=== PATIENT | male | born 1965 | race Hispanic/Latino ===

== ENCOUNTER 2018-06-08 14:18 | Inpatient (IN) | payer MEDICAID ==
--- NOTE | 2018-06-08 16:02 | C.PDOC ---
History Of Present Illness 52 y/o male presents to the ER complaining of depression and suicidal ideation. Patient states that he did not attempt suicide as of now. Patient reports that he does not have any plans as of yet and he is trying to figure out a way he can harm himself. He admits to drug use. Denies having homicidal ideation and active physical complaints. Time Seen by Provider: 06/08/18 15:13 Chief Complaint (Nursing): Psychiatric Evaluation History Per: Patient History/Exam Limitations: no limitations Onset/Duration Of Symptoms: Days Current Symptoms Are (Timing): Still Present Severity: Moderate Past Medical History Reviewed: Historical Data, Nursing Documentation, Vital Signs Vital Signs: Last Vital Signs Temp 98.4 F 06/08/18 18:15 Pulse 61 06/08/18 18:15 Resp 18 06/08/18 18:15 BP 119/72 06/08/18 18:15 Pulse Ox 97 06/08/18 18:54 - Medical History PMH: Anxiety, Depression, Post Traumatic Stress Disorder Other Surgeries: Hx of surgeries Family History: States: No Known Family Hx - Social History Hx Alcohol Use: Yes Hx Substance Use: Yes Review Of Systems Except As Marked, All Systems Reviewed And Found Negative. Constitutional: Negative for: Fever, Chills Psych: Positive for: Suicidal ideation Physical Exam - Physical Exam Appears: No Acute Distress Skin: Normal Color, Warm, Dry Head: Atraumatic, Normacephalic Eye(s): bilateral: Normal Inspection Nose: Normal Oral Mucosa: Moist Neck: Supple Chest: Symmetrical Cardiovascular: Rhythm Regular Respiratory: Normal Breath Sounds, No Rales, No Rhonchi, No Wheezing Gastrointestinal/Abdominal: Normal Exam, Soft, No Tenderness, No Guarding, No Rebound Neurological/Psych: Oriented x3, Normal Speech ED Course And Treatment - Laboratory Results Result Diagrams: 06/08/18 17:09 06/08/18 17:09 O2 Sat by Pulse Oximetry: 97 (RA) Pulse Ox Interpretation: Normal Medical Decision Making Medical Decision Making: Assessment: Suicidal Ideation, Substance Abuse Plan: --Labs --UA --1:1 Observation Updates: Patient has been cleared by CRISIS. case s/o to Dr. Little pending crisis evaluation Disposition - Disposition Disposition Time: 19:00 Condition: FAIR Forms: [employer] (Sing[place]an) - Clinical Impression Clinical Impression: Threatening suicide - Scribe Statement The provider has reviewed the documentation as recorded by the Scribe Oleg Bonilla Provider Attestation: All medical record entries made by the Scribe were at my direction and personally dictated by me. I have reviewed the chart and agree that the record accurately reflects my personal performance of the history, physical exam, medical decision making, and the department course for this patient. I have also personally directed, reviewed, and agree with the discharge instructions and disposition. Physician Patient Turnover Patient Signed Over To: Barry Little Handoff Comments: pending crisis evaluation
[2018-06-08 17:13] LABS: HEMOGLOBIN 13.5 g/dL (12.0-18.0); LYMPH # 1.2 K/uL (1.0-4.3); MONO # 0.3 K/uL (0.0-0.8); RBC 4.43 Mil/uL (4.40-5.90)
[2018-06-08 17:20] LABS: BASO % 0.4 % (0.0-2.0); LYMPH % 16.3 % (20.0-40.0); MEAN CELL VOLUME 88.1 fL (80.0-94.0); MEAN CORPUSCULAR HEMOGLOBIN 30.5 pg (27.0-31.0); MEAN CORPUSCULAR HGB CONC 34.6 g/dL (33.0-37.0); MEAN PLATELET VOLUME 7.5 fL (7.2-11.7); MONO % 3.7 % (0.0-10.0); NEUT # 6.1 K/uL (1.8-7.0); NEUT % 79.6 % (50.0-75.0); NRBC % 0.1 % (0.0-2.0); RED CELL DISTRIBUTION WIDTH 13.1 % (11.5-14.5); WHITE BLOOD COUNT 7.7 K/uL (4.8-10.8)
[2018-06-08 17:22] LABS: SQUAMOUS EPITHIAL < 1 /hpf (0-5); URINE BILIRUBIN NEGATIVE (NEGATIVE); URINE BLOOD NEGATIVE (NEGATIVE); URINE CLARITY Hazy (Clear); URINE COLOR Amber (YELLOW); URINE GLUCOSE (UA) NORMAL (Normal); URINE LEUKOCYTE ESTERASE NEG Leu/uL (Negative); URINE PROTEIN 2+ mg/dL (NEGATIVE)
[2018-06-08 17:40] LABS: ALB/GLOB RATIO 1.1 (1.0-2.1); ALBUMIN 4.9 g/dL (3.5-5.0); ALT/SGPT 28 U/L (21-72); AST/SGOT 24 U/L (17-59); BLOOD UREA NITROGEN 15 mg/dL (9-20); CALCIUM 9.7 mg/dl (8.6-10.4); GFR AFRICAN-AMERICAN > 60; GFR NON-AFRICAN AMERICAN > 60
[2018-06-08] MEDS ORDERED: Potassium Chloride 20 mEq ER Tab PO STA (17:43)
[2018-06-08 18:10] LABS: BARBITURATES, UR NEGATIVE (NEGATIVE); BENZODIAZEPINES, UR NEGATIVE (NEGATIVE); PHENCYCLIDINE, UR NEGATIVE (NEGATIVE)
[2018-06-08] MEDS ORDERED: Potassium Chloride 20 mEq ER Tab PO ONE (18:10)
[2018-06-08 18:35] LABS: OPIATES, UR POSITIVE (NEGATIVE)
[2018-06-08 19:08] VITALS: O2SAT 98
--- NOTE | 2018-06-08 20:40 | PCM.BM ---
Treatment Plan Problems - Problems identified on initial assessmt depression Date Initiated: 06/08/18 Time Initiated: 20:39 Assessment reference: NA substance abuse Date Initiated: 06/08/18 Time Initiated: 20:39 Assessment reference: NA Treatment assets and liabiliti Patient Assests: cooperative, motivated, ADL independent, negotiates basic needs Patient Liabilities: live alone, financial problems, poor support system, substance abuse
--- NOTE | 2018-06-08 20:42 | PCM.BM ---
<Corrie Yin - Last Filed: 06/08/18 20:40> Treatment Plan Problems - Problems identified on initial assessmt depression Date Initiated: 06/08/18 Time Initiated: 20:39 Assessment reference: NA substance abuse Date Initiated: 06/08/18 Time Initiated: 20:39 Assessment reference: NA Status: Active Treatment assets and liabiliti Patient Assests: cooperative, motivated, ADL independent, negotiates basic needs Patient Liabilities: live alone, financial problems, poor support system, substance abuse - Milieu Protocol Maintain good personal hygiene: daily Encourage regular showers, daily Remind patient to perform daily oral care, daily Assist patient to perform ADL's Conduct patient checks and document Observation sheet: 1:1 Maintain personal safety: every shift Educate patient to report safety concerns to staff, every shift Monitor environment for contraband/sharps Medication safety: Monitor for expected outcome, potential side effects: every shift, Assess barriers to learning: every shift, Assess readiness for medication education: every shift <Jazmin Paris - Last Filed: 06/09/18 13:42> - Diagnosis (1) Depression Status: Acute Interventions: 06/09/18 13:42 * Assess/adjust medications daily and /or as needed * See patient on an individual basis 7x/week to assess symptoms of depression * Monitor for side effects & effectiveness of medications * (2) Opioid use disorder, severe, dependence Status: Acute Interventions: 06/09/18 13:42 * Assess 7x/week regarding severity of withdrawal * Educate regarding risks, benefits, side effects and alternatives of medications * Use Motivational Interviewing for abstinence * Use CBT for relapse prevention * Medication management for withdrawal symptoms * Encourage medication assisted treatment * <Soni Hewitt - Last Filed: 06/09/18 17:46> Family Contact Family involvement: Patient does not wish Family/SO involvement Family contact: Patient declines to allow family contact at present - Goals for Treatment Patient goals for treatment: "I want to go to an outpatient program." Discharge/Continuing Care - Education Needs Education Needs: Patient Medication, Patient Diagnosis/Disease Process, Patient Coping Skills, Patient Placement options, Patient Community resources - Discharge Discharge Criteria: Free of Suicidal thoughts, Normal sleep pattern, Ability to care for self, No longer exhibiting s/s of withdrawal, Reduction of target symptoms Discharge to:: Intermediate, Other - Treatment Team Participation Discussed with Family/SO: No Was Patient/Family/SO present at Treatment Team Meeting: Yes
--- NOTE | 2018-06-09 11:19 | PCM.PSYCH ---
Initial Psychiatric Evaluation - Initial Psychiatric Evaluation Type of Admission: Voluntary Legal Status: Capacity Chief Complaint (in patient's own words): "I just want to " History of Present Illness and Precipitating Events: Patient is a 52 year old male with a history of chronic opiate and alcohol abuse that was admitted for suicidal ideation. The patient states that he came to the ER yesterday because he was having thoughts of killing himself. He states that he did not have a plan. The patient states that he has been homeless since 1995 and has no family. He states that he has had depression since he was a teenager. He has been hospitalized three times in a psych unit in [facility]. The patient has attempted to commit suicide four times in the past. He states that he is only on medications when he has been in the hospital. Most recently he has been without medication for two years. He was on Zoloft, Neurontin, and Klonopin but is not currently taking his medications. The patient admits to heroin use 10-30 bags a day via IV and cocaine 10 capsules a day via IV. He also admits to occasional marijuana use but did not quantify the amount. He states that he drinks up to 20 24 ounce beer cans a day. He currently expresses depressed mood and feelings of hopelessness and helplessness. He is reporting withdrawal symptoms including muscle cramps., nausea, joint pains and muscle cramps. Past Medical History: Hepatitis C Past surgical history: hip and elbow surgery Social history: currently does no have a job, is homeless, smokes 1 pack of cigarettes a day Current Medications: Active Medications Generic Name Dose Route Start Last Admin Trade Name Freq PRN Reason Stop Dose Admin Al Hydrox/Mg Hydrox/Simethicone 30 ml 06/09/18 08:52 Maalox 30 Ml PO TID PRN Indigestion / Heartburn Clonidine HCl 0.1 mg 06/09/18 08:52 Catapres PO Q8 PRN COWS Score More or Equal to 5 Hydroxyzine HCl 50 mg 06/09/18 08:52 Atarax PO Q6H PRN Anxiety Ibuprofen 600 mg 06/09/18 08:52 Motrin Tab PO Q6H PRN Pain, moderate (4-7) Loperamide HCl 2 mg 06/09/18 08:52 Imodium PO Q8 PRN Diarrhea Methadone HCl 15 mg 06/09/18 10:00 06/09/18 10:19 Methadone PO 06/13/18 09:59 15 mg Q24H ALEAH Administration Taper Ondansetron HCl 4 mg 06/09/18 08:52 Zofran Tab PO Q8 PRN Nausea/Vomiting Trazodone HCl 100 mg 06/09/18 08:52 Desyrel PO HS PRN Insomnia Past Psychiatric History - Past Psychiatric History Previous Treatment History: Inpatient At [facility] hospital: [facility] Pertinent Medical Hx (Current Medical&Sleep Prob, Allergies): Allergies Allergy/AdvReac Type Severity Reaction Status Date / Time No Known Allergies Allergy Verified 06/08/18 15:01 No Known Home Med 06/08/18 Review of Systems - Review of Systems All systems: reviewed and no additional remarkable complaints except - Musculoskeletal Musculoskeletal: Muscle Cramps - Psychiatric Psychiatric: Anxiety, Depression, Irritability, Suicidal Ideation Mental Status Examination - Personal Presentation Personal Presentation: Looks stated age - Affect Affect: Constricted, Depressed - Motor Activity Motor Activity: Calm - Reliability in Providing Information Reliability in Providing Information: Fair - Speech Speech: Organized - Mood Mood: Depressed, Anxious - Formal Thought Process Formal Thought Process: No Impairment (+) - Obsessions/Compulsions Obsessions: No Compulsions: No - Cognitive Functions Orientation: Person, Place, Situation, Time Sensorium: Alert Abstract Thinking: [place] Estimate of Intelligence: Below average Judgement: Imparied, as evidence by: Poor judgement, Imparied, as evidence by: Lack of insight into illness - Risk Risk: Suicidal, Withdrawal, Diminished functioning - Limitations Limitations: Living alone DSM 5 DX - DSM 5 DSM 5 Diagnosis: Major Depressive Disorder recurrent severe without psychotic features Opiate use disorder severe Opiate withdrawal Alcohol use disorder severe Alcohol withdrawal - Recommended/Plan of Treatment Treatment Recommendations and Plan of Treatment: Major Depressive Disorder recurrent severe without psychotic features Opiate use disorder severe Opiate withdrawal Alcohol use disorder severe Alcohol withdrawal -CBT -Psychotherapy -Supportive therapy, group therapy, individual therapy -Atarax 25 mg PO Q6 prn -Neurontin 300 mg PO TID -Methadone taper -Zoloft 50 mg -Trazodone 100 mg -Supportive therapy and education -CBT for relapse prevention -Nicotine patch if needed -Monitor for withdrawal symptoms
[2018-06-09] MEDS: Aluminum Hydroxide/Magnesium Hydroxide Susp (30 mL) PO PRN (18:10)
[2018-06-10] MEDS: Aluminum Hydroxide/Magnesium Hydroxide Susp (30 mL) PO PRN (08:16)
--- NOTE | 2018-06-10 15:59 | PCM.PYCHPN ---
Psychiatric Progress Note - Psychiatric Progress Note Patient seen today, length of contact: 16 min Patient Chief Complaint: "I am feeling depressed" Problems Identified/Issues Discussed: Patient seen and evaluated, chart reviewed and discussed with the nurse. Patient reports depressed mood and feelings of hopelessness and helplessness. He remained depressed, isolated and withdrawn. He still reports withdrawal symptoms including anxiety, cramps, joins pains, headaches and sweating. However he remained calm and cooperative. He is taking medication and denies any side effects. Symptoms are improving but he needs more time for stabilization. Supportive therapy and psychoeducation were given. Medication Change: Yes Medical Record Reviewed: Yes Mental Status Examination - Cognitive Function Orientation: Person, Place, Situation, Time Memory: Intact Attention: WNL Concentration: Poor Association: WNL Fund of Knowledge: Poor - Mood Mood: Depressed, Anxious - Affect Affect: Constricted, Depressed - Speech Speech: Soft - Formal Thought Process Formal Thought Process: No Impairment (+) - Suicidal Ideation Suicidal Ideation: No - Homicidal Ideation Homicidal Ideation: No Goal/Treatment Plan - Goal/Treatment Plan Need for Continued Stay: Severe depression anxiety, Severe functional impairment Progress Toward Problem(s) and Goals/Treatment Plan: Major Depressive Disorder recurrent severe without psychotic features Opiate use disorder severe Opiate withdrawal Alcohol use disorder severe Alcohol withdrawal -CBT -Psychotherapy -Supportive therapy, group therapy, individual therapy -Atarax 25 mg PO Q6 prn -Neurontin 300 mg PO TID -Methadone taper -Zoloft 50 mg -Trazodone 100 mg -Supportive therapy and education -CBT for relapse prevention -Nicotine patch if needed -Monitor for withdrawal symptoms
[2018-06-10 21:22] LABS: ALB/GLOB RATIO 1.1 (1.0-2.1); ALT/SGPT 25 U/L (21-72); AST/SGOT 32 U/L (17-59); BLOOD UREA NITROGEN 19 mg/dL (9-20); CALCIUM 9.2 mg/dl (8.6-10.4); GFR AFRICAN-AMERICAN > 60; GFR NON-AFRICAN AMERICAN > 60
--- NOTE | 2018-06-10 22:26 | CP.PCM.CON ---
History of Present Illness - History of Present Illness History of Present Illness: CC: Left hand pain HPI: Patient is a 52 year old male with past medical history of Hepatitis C, IV drug use, Alcohol abuse, Depression, Anxiety and Bipolar, who was admitted to inpatient psychiatry for suicidal ideation and depression. Medicine consultation was placed for possible left hand abscess. Patient states that he noted left hand pain between his 3rd and 4th metacarpal 2-3 days before he was admitted. Pain was noted after drug use with re-used needle; patient states that he missed his vein that day. Patient noted mild swelling and redness to the site earlier today and more tenderness on palpation. Patient denies any radiation of pain, fever, chest pain, palpitations, drainage from his left hand , numbness/tingling and decreased or loss of range of motion but admits to chills. PMD: None PMHx: Hepatitis C, IV drug use, Alcohol abuse, Depression, Anxiety and Bipolar PSHx: Left elbow surgery and right hip fracture repair FHx: Denies/Unknown Medications: None Allergies: NKDA Social Hx: Between homes in the [facility]. Admits to 40 years of 1PPD, 1-20 (20-24 ounces) can of beers daily and daily use of heroine and cocaine for the past 25 years (10-30 bags IV) Review of Systems - Constitutional Constitutional: Chills. absent: Fever, Headache, Malaise - Cardiovascular Cardiovascular: Chest Pain at Rest. absent: Chest Pain, Diaphoresis, Dyspnea, Dyspnea on Exertion, Palpitations, Radiating Pain - Respiratory Respiratory: absent: Cough, Dyspnea - Gastrointestinal Gastrointestinal: absent: Abdominal Pain, Nausea, Vomiting - Musculoskeletal Musculoskeletal: absent: Limited Range of Motion, Numbness, Tingling - Integumentary Integumentary: Erythema. absent: Pruritus, Rash Additional comments: Left hand erythema - Neurological Neurological: absent: Numbness, Headaches, Tingling - Psychiatric Psychiatric: Anxiety, Depression - Endocrine Endocrine: absent: Palpitations Past Patient History - Past Social History Smoking Status: Heavy Smoker > 10 Cigarettes Daily - CARDIAC Hx Cardiac Disorders: No Hx Hypertension: No - PULMONARY Hx Tuberculosis: No - NEUROLOGICAL HX Cerebrovascular Accident: No Hx Seizures: No - RENAL Hx Chronic Kidney Disease: No Hx Dialysis: No Hx Neurogenic Bladder: No Hx Renal (Kidney) Cancer: No - HEMATOLOGICAL/ONCOLOGICAL Hx Cancer: No Hx Human Immunodeficiency Virus (HIV): No - MUSCULOSKELETAL/RHEUMATOLOGICAL Hx Musculoskeletal Disorders: Yes Hx Degenerative Joint Disease: Yes - GENITOURINARY/GYNECOLOGICAL Hx Sexually Transmitted Disorders: No - PSYCHIATRIC Hx Substance Use: Yes - SURGICAL HISTORY Hx Surgeries: Yes Hx Orthopedic Surgery: Yes - ANESTHESIA Hx Anesthesia: No Meds Allergies/Adverse Reactions: Allergies Allergy/AdvReac Type Severity Reaction Status Date / Time No Known Allergies Allergy Verified 06/08/18 15:01 - Medications Medications: Current Medications Al Hydrox/Mg Hydrox/Simethicone (Maalox 30 Ml) 30 ml PO TID PRN PRN Reason: Indigestion / Heartburn Last Admin: 06/10/18 08:16 Dose: 30 ml Chlordiazepoxide (Librium) 25 mg PO Q8 PRN PRN Reason: Symptoms of alcohol withdrawl Clindamycin HCl (Cleocin) 450 mg PO Q6H [facility] PRN Reason: Protocol Clonidine HCl (Catapres) 0.1 mg PO Q8 PRN PRN Reason: COWS Score More or Equal to 5 Folic Acid (Folic Acid) 1 mg PO DAILY [facility] Gabapentin (Neurontin) 300 mg PO TID [facility] Last Admin: 06/10/18 18:05 Dose: 300 mg Hydroxyzine HCl (Atarax) 50 mg PO Q6H PRN PRN Reason: Anxiety Last Admin: 06/10/18 18:09 Dose: 50 mg Ibuprofen (Motrin Tab) 600 mg PO Q6H PRN PRN Reason: Pain, moderate (4-7) Loperamide HCl (Imodium) 2 mg PO Q8 PRN PRN Reason: Diarrhea Methadone HCl (Methadone) 10 mg PO Q24H [facility] PRN Reason: Taper Stop: 06/13/18 09:59 Last Admin: 06/10/18 09:48 Dose: 10 mg Multivitamins (Hexavitamin) 1 tab PO DAILY [facility] Ondansetron HCl (Zofran Tab) 4 mg PO Q8 PRN PRN Reason: Nausea/Vomiting Saccharomyces Boulardii (Florastor) 250 mg PO BID [facility] Sertraline HCl (Zoloft) 50 mg PO DAILY [facility] Last Admin: 06/10/18 09:49 Dose: 50 mg Thiamine HCl (Vitamin B1 Tab) 100 mg PO DAILY [facility] Trazodone HCl (Desyrel) 100 mg PO HS PRN PRN Reason: Insomnia Physical Exam - Constitutional Appears: No Acute Distress Additional comments: Very Thin - Head Exam Head Exam: ATRAUMATIC, NORMAL INSPECTION - Eye Exam Eye Exam: EOMI, Normal appearance - ENT Exam ENT Exam: Mucous Membranes Dry - Respiratory Exam Respiratory Exam: Clear to Auscultation Bilateral, NORMAL BREATHING PATTERN. absent: Decreased Breath Sounds, Rhonchi, Wheezes, Respiratory Distress - Cardiovascular Exam Cardiovascular Exam: Bradycardia, REGULAR RHYTHM, +S1, +S2. absent: Clicks, Diastolic murmur, Systolic Murmur - GI/Abdominal Exam GI & Abdominal Exam: Normal Bowel Sounds, Soft. absent: Distended, Firm, Guarding, Tenderness - Extremities Exam Extremities exam: Positive for: normal inspection Additional comments: Left hand between 3rd and 4th metacarpal and lateral ulnar side tenderness and mild erythema, no flatulence Normal range of motion and strength No tingling or numbness Some track marking B//L upper extremities - Neurological Exam Neurological exam: Alert, Oriented x3 - Psychiatric Exam Psychiatric exam: Normal Affect - Skin Skin Exam: Normal Color Results - Vital Signs Recent Vital Signs: Last Vital Signs Temp 98.3 F 06/10/18 06:55 Pulse 48 L 06/10/18 16:00 Resp 18 06/10/18 06:55 BP 129/92 H 06/10/18 16:00 Pulse Ox 98 06/08/18 19:08 - Labs Result Diagrams: 06/08/18 17:09 06/10/18 19:56 Labs: Laboratory Results - last 24 hr 06/10/18 19:56 Sodium 143 Potassium 4.1 Chloride 106 Carbon Dioxide 23 Anion Gap 18 BUN 19 Creatinine 0.9 Est GFR ( Amer) > 60 Est GFR (Non-Af Amer) > 60 Random Glucose 82 Calcium 9.2 Total Bilirubin 0.5 AST 32 ALT 25 Alkaline Phosphatase 80 Total Protein 7.7 Albumin 4.0 Globulin 3.7 Albumin/Globulin Ratio 1.1 Assessment & Plan (1) Left hand pain Assessment and Plan: Secondary to IV drug use Afebrile Medications: Clindamycin 450mg PO QID (Started 06/10/18) Florastor 250mg PO BID Motrin 600mg PO Q6H PRN for pain control If symptoms worsens or becomes flatulence, appropriate imaging will be considered to r/o abscess Status: Acute (2) Opioid use disorder, severe, dependence Assessment and Plan: Psychiatry, Dr. Nice on board Medications: Methadone 10mg PO QD Clonidine 0.1mg PO Q8H PRN Imodium 2mg PO Q8H PRN Maalox 30ml PO TID PRN Zofran 4mg PO Q8H PRN Trazadone 100mg PO HS Gabapentin 300mg PO TID Status: Acute (3) Alcohol abuse Assessment and Plan: Psychiatry, Dr. Nice on board Medications: * Librium 25mg PO Q8H PRN * Folic acid 1 tab PO daily * Thiamine 100mg PO daily * Multivitamins 1 tab PO daily Status: Acute (4) Depression Assessment and Plan: Psychiatry, Dr. Nice on board Medications: * Zoloft 50mg PO daily Status: Acute (5) Threatening suicide Assessment and Plan: Psychiatry, Dr. Nice on board * Management as per psychiatry Status: Acute (6) Prophylactic measure Assessment and Plan: DVT: Ambulating GI: Not indicated All plans and management discussed with Dr. Jaimes Status: Acute
[2018-06-11 08:56] LABS: BASO # 0.1 K/uL (0.0-0.2); BASO % 1.1 % (0.0-2.0); EOS # 0.1 K/uL (0.0-0.7); EOS % 0.7 % (0.0-4.0); HEMOGLOBIN 13.7 g/dL (12.0-18.0); LYMPH # 2.9 K/uL (1.0-4.3); LYMPH % 38.1 % (20.0-40.0); MEAN CELL VOLUME 88.9 fL (80.0-94.0); MEAN CORPUSCULAR HEMOGLOBIN 30.9 pg (27.0-31.0); MEAN CORPUSCULAR HGB CONC 34.8 g/dL (33.0-37.0); MEAN PLATELET VOLUME 7.9 fL (7.2-11.7); MONO # 0.5 K/uL (0.0-0.8); MONO % 5.9 % (0.0-10.0); NEUT # 4.2 K/uL (1.8-7.0); NEUT % 54.2 % (50.0-75.0); NRBC % 0.2 % (0.0-2.0); RBC 4.42 Mil/uL (4.40-5.90); RED CELL DISTRIBUTION WIDTH 13.3 % (11.5-14.5); WHITE BLOOD COUNT 7.7 K/uL (4.8-10.8)
[2018-06-11 09:33] LABS: HEPATITIS B SURFACE AG Negative (NEGATIVE)
[2018-06-11 09:38] LABS: HEPATITIS A IGM NEGATIVE (NEGATIVE); HEPATITIS B CORE AB NEGATIVE (NEGATIVE)
[2018-06-11] MEDS: Multiple Vitamins Tab PO SCH (09:44)
[2018-06-11] MEDS: Saccharomyces Boulardi 250 mg Cap PO SCH ×2 (09:48→17:21)
[2018-06-11 10:59] LABS: HEPATITIS C ANTIBODY REACTIVE (NEGATIVE)
--- NOTE | 2018-06-11 13:59 | CP.PCM.PN ---
Subjective - Date & Time of Evaluation Date of Evaluation: 06/11/18 Time of Evaluation: 13:59 - Subjective Subjective: PGY-[address] Hemphill. Patient seen and evaluated at bedside. Patient resting in bed, in no acute distress. Complains of persistent pain to left hand that has not improved. Denies fevers, chills, nausea, vomiting, abdominal pain, chest pain, shortness of breath and headache. Objective - Vital Signs/Intake and Output Vital Signs (last 24 hours): Temp Pulse Resp BP Pulse Ox 97.8 F 39 L 18 126/76 98 06/11/18 06:47 06/11/18 06:47 06/11/18 06:47 06/11/18 06:47 06/08/18 19:08 - Medications Medications: Current Medications Al Hydrox/Mg Hydrox/Simethicone (Maalox 30 Ml) 30 ml PO TID PRN PRN Reason: Indigestion / Heartburn Last Admin: 06/10/18 08:16 Dose: 30 ml Chlordiazepoxide (Librium) 25 mg PO Q8 PRN PRN Reason: Symptoms of alcohol withdrawl Last Admin: 06/11/18 00:04 Dose: 25 mg Clindamycin HCl (Cleocin) 450 mg PO Q6H [facility] PRN Reason: Protocol Last Admin: 06/11/18 11:45 Dose: 450 mg Clonidine HCl (Catapres) 0.1 mg PO Q8 PRN PRN Reason: COWS Score More or Equal to 5 Folic Acid (Folic Acid) 1 mg PO DAILY [facility] Last Admin: 06/11/18 09:43 Dose: 1 mg Gabapentin (Neurontin) 300 mg PO TID [facility] Last Admin: 06/11/18 13:57 Dose: 300 mg Hydroxyzine HCl (Atarax) 50 mg PO Q6H PRN PRN Reason: Anxiety Last Admin: 06/11/18 09:44 Dose: 50 mg Ibuprofen (Motrin Tab) 600 mg PO Q6H PRN PRN Reason: Pain, moderate (4-7) Loperamide HCl (Imodium) 2 mg PO Q8 PRN PRN Reason: Diarrhea Methadone HCl (Methadone) 5 mg PO Q24H [facility] PRN Reason: Taper Stop: 06/13/18 09:59 Last Admin: 06/11/18 09:43 Dose: 5 mg Multivitamins (Hexavitamin) 1 tab PO DAILY [facility] Last Admin: 06/11/18 09:44 Dose: 1 tab Ondansetron HCl (Zofran Tab) 4 mg PO Q8 PRN PRN Reason: Nausea/Vomiting Saccharomyces Boulardii (Florastor) 250 mg PO BID [facility] Last Admin: 06/11/18 09:48 Dose: 250 mg Sertraline HCl (Zoloft) 50 mg PO DAILY [facility] Last Admin: 06/11/18 09:43 Dose: 50 mg Thiamine HCl (Vitamin B1 Tab) 100 mg PO DAILY [facility] Last Admin: 06/11/18 09:44 Dose: 100 mg Trazodone HCl (Desyrel) 100 mg PO HS PRN PRN Reason: Insomnia - Labs Labs: 06/11/18 08:40 06/10/18 19:56 - Constitutional Appears: No Acute Distress - Head Exam Head Exam: ATRAUMATIC, NORMOCEPHALIC - Eye Exam Additional comments: Pupils dilated, reactive to light - ENT Exam ENT Exam: Mucous Membranes Moist - Respiratory Exam Respiratory Exam: Decreased Breath Sounds, Clear to Ausculation Bilateral - Cardiovascular Exam Cardiovascular Exam: REGULAR RHYTHM, +S1, +S2 - GI/Abdominal Exam GI & Abdominal Exam: Soft, Normal Bowel Sounds. absent: Tenderness - Extremities Exam Additional comments: mild swelling, warmth, and ecchymoses to 5x3cm area of dorsum of hand overlying 4th and 5th metacarpals. + tenderness. No streaking. No fluctuance palpated. No drainage of purulent fluid. capillary refill < 2 seconds. Full ROM. Distal pulses intact. - Neurological Exam Neurological Exam: Alert, Awake - Skin Skin Exam: Dry, Intact, Warm Assessment and Plan - Assessment and Plan (Free Text) Plan: (1) Left hand pain Assessment and Plan: Secondary to IV drug use Afebrile Medications: Clindamycin 450mg PO QID (Started 06/10/18) Florastor 250mg PO BID Motrin 600mg PO Q6H PRN for pain control L hand US ordered- f/u (2) Opioid use disorder, severe, dependence Assessment and Plan: Psychiatry, Dr. Nice on board Medications: Methadone 5mg PO QD Clonidine 0.1mg PO Q8H PRN Imodium 2mg PO Q8H PRN Maalox 30ml PO TID PRN Zofran 4mg PO Q8H PRN Trazadone 100mg PO HS Gabapentin 300mg PO TID Atarax 50mg PO Q6H PRN Status: Acute (3) Alcohol abuse Assessment and Plan: Psychiatry, Dr. Nice on board Medications: * Librium 25mg PO Q8H PRN * Folic acid 1 tab PO daily * Thiamine 100mg PO daily * Multivitamins 1 tab PO daily Status: Acute (4) Depression Assessment and Plan: PsychiatryDr. Nice on board Medications: * Zoloft 50mg PO daily Status: Acute (5) Threatening suicide Assessment and Plan: Psychiatry, Dr. Nice on board * Management as per psychiatry Status: Acute (6) Prophylactic measure Assessment and Plan: DVT: Ambulating GI: Not indicated
[2018-06-12] MEDS: Saccharomyces Boulardi 250 mg Cap PO SCH ×2 (09:52→17:22)
[2018-06-12] MEDS: Multiple Vitamins Tab PO SCH (09:52)
[2018-06-12 11:38] LABS: BASO # 0.1 K/uL (0.0-0.2); BASO % 0.7 % (0.0-2.0); EOS % 0.6 % (0.0-4.0); HEMOGLOBIN 12.4 g/dL (12.0-18.0); LYMPH # 2.7 K/uL (1.0-4.3); LYMPH % 34.8 % (20.0-40.0); MEAN CELL VOLUME 88.4 fL (80.0-94.0); MEAN CORPUSCULAR HGB CONC 35.1 g/dL (33.0-37.0); MEAN PLATELET VOLUME 7.2 fL (7.2-11.7); MONO # 0.5 K/uL (0.0-0.8); MONO % 6.7 % (0.0-10.0); NEUT # 4.4 K/uL (1.8-7.0); NEUT % 57.2 % (50.0-75.0); RBC 3.98 Mil/uL (4.40-5.90); RED CELL DISTRIBUTION WIDTH 13.4 % (11.5-14.5); WHITE BLOOD COUNT 7.7 K/uL (4.8-10.8)
[2018-06-12 12:04] LABS: ALB/GLOB RATIO 1.2 (1.0-2.1); ALBUMIN 3.9 g/dL (3.5-5.0); ALT/SGPT 24 U/L (21-72); AST/SGOT 18 U/L (17-59); BLOOD UREA NITROGEN 20 mg/dL (9-20); CALCIUM 8.9 mg/dl (8.6-10.4); GFR AFRICAN-AMERICAN > 60; GFR NON-AFRICAN AMERICAN > 60
--- NOTE | 2018-06-12 14:26 | US ---
Limited soft tissue ultrasound left hand History: Abscess. Comparison: None available. Technique: Real-time sonography was performed through the soft tissues of the left hand. Findings: Complex heterogeneous collection measuring 1.3 x 0.4 x 0.6 centimeters at the site of the palpable abnormality within the dorsum of the left hand. Associated increased flow. This is of uncertain clinical etiology. Underlying abscess and or phlegmon collection cannot be excluded. Additional etiologies not excluded. Clinical correlation. Correlation with contrast-enhanced MRI may be helpful if clinically indicated. Adjacent to this collection, also within the dorsum of the hand more proximally, there is an additional hypoechoic foci/collection measuring 5 x 2 x 6 millimeters. This is of also of uncertain clinical etiology. Underlying small abscess collection cannot be excluded. Additional etiologies not excluded. Correlation with contrast-enhanced MRI may be helpful if clinically indicated. Impression: Complex heterogeneous collection measuring 1.3 x 0.4 x 0.6 centimeters at the site of the palpable abnormality within the dorsum of the left hand. Associated increased flow. This is of uncertain clinical etiology. Underlying abscess and or phlegmon collection cannot be excluded. Additional etiologies not excluded. Clinical correlation. Correlation with contrast-enhanced MRI may be helpful if clinically indicated. Adjacent to this collection, also within the dorsum of the hand more proximally, there is an additional hypoechoic foci/collection measuring 5 x 2 x 6 millimeters. This is of also of uncertain clinical etiology. Underlying small abscess collection cannot be excluded. Additional etiologies not excluded. Correlation with contrast-enhanced MRI may be helpful if clinically indicated.
--- NOTE | 2018-06-12 15:33 | CP.PCM.PN ---
Subjective - Date & Time of Evaluation Date of Evaluation: 06/12/18 Time of Evaluation: 15:15 - Subjective Subjective: Hospitalist Consult Note Patient was seen and examined at 3:15 PM 533 Currently upon FULL ROS: NO chest pain NO SOB/Cough NO abdominal pain NO n/v/d/c NO burning pain with urination NO dysphagia/odynophagia NO lightheadedenss/dizziness NO paresthesias NO new changes in visioin NO new changes in hearing NO headache Exam: General: AAOX3, NAD HEENT: NCA, EOMI, PERRLA, TM are intact however exam is limited by narrowing of the auditory canals bilaterally. (patient was instructed to stop sticking things in his ear: he stated that he was sticking the hub of his syringes in his ears) NO cervical/supraclavicular/submandibular lymphadenopathy, NO pharyngeal erythema/exudate, Nasal Turbinates are nonerythematous/nonedematous, Oral Mucosa is moist Cardio: NS1 and NS2, NO M/R?G Resp: CTA B/L, NO R/R/W GI: BSx4, Soft, NT, NO HSM, NO guarding/rebound tenderness Ext: Pulses are strong and equal in bilateral UE and LE, NO edema noted, capillary refills is 2 seconds Neuro: CN II through XII are grossly intact Left Hand Posterior Aspect: roughly 1 cm round nontender freely movable mass at the head of the 4th metacarpal and roughly .5 cm round nontender freely movable mass at the base of the fifth metacarpal. NO erythema/warmth/edema noted 1). Left Hand Phlegmon/Abscess U/S shows complex heterogenous collection 1.3 x 0.4 x 0.6 cm and 5 x 2 x 5 mm collection Clindamycin 450 mg PO Q6H from 06/10/18 through 06/20/18 for a total of 10 days Florastor 250 mg PO 2x/day Upon discharge from the Psychiatry Unit, Psychiatry Team should perform the followin). Patient should be provided with prescription for Clindamycin 450 mg PO 4x/ day (8 AM, 1 PM, 6 PM, 10 PM) through 06/20/18 2). Instruct patient to take a probiotic daily at 10 AM and 3 PM through 07/21/18 3). Instruct the patient to schedule follow up with the [facility] located on [address] by calling [phone] for an appointment to take place a few days after 06/20/18 (finishing the antibiotic) for check up on his hand and to help coordinate his health care. Medicine Team will be signing off. If psychiatry team has any questions concerning the above instructions, please just give us a call. Carlos Hemphill D.O. Objective - Vital Signs/Intake and Output Vital Signs (last 24 hours): Temp Pulse Resp BP Pulse Ox 97.6 F 68 18 100/61 98 06/12/18 06:52 06/12/18 06:52 06/12/18 06:52 06/12/18 06:52 06/08/18 19:08 - Medications Medications: Current Medications Al Hydrox/Mg Hydrox/Simethicone (Maalox 30 Ml) 30 ml PO TID PRN PRN Reason: Indigestion / Heartburn Last Admin: 06/10/18 08:16 Dose: 30 ml Chlordiazepoxide (Librium) 25 mg PO Q8 PRN PRN Reason: Symptoms of alcohol withdrawl Last Admin: 06/11/18 00:04 Dose: 25 mg Clindamycin HCl (Cleocin) 450 mg PO Q6H [facility] PRN Reason: Protocol Last Admin: 06/12/18 10:08 Dose: 450 mg Clonidine HCl (Catapres) 0.1 mg PO Q8 PRN PRN Reason: COWS Score More or Equal to 5 Folic Acid (Folic Acid) 1 mg PO DAILY [facility] Last Admin: 06/12/18 09:53 Dose: 1 mg Gabapentin (Neurontin) 300 mg PO TID [facility] Last Admin: 06/12/18 14:10 Dose: 300 mg Hydroxyzine HCl (Atarax) 50 mg PO Q6H PRN PRN Reason: Anxiety Last Admin: 06/11/18 09:44 Dose: 50 mg Ibuprofen (Motrin Tab) 600 mg PO Q6H PRN PRN Reason: Pain, moderate (4-7) Loperamide HCl (Imodium) 2 mg PO Q8 PRN PRN Reason: Diarrhea Methadone HCl (Methadone) 5 mg PO Q24H [facility] PRN Reason: Taper Stop: 06/13/18 09:59 Last Admin: 06/12/18 09:52 Dose: 5 mg Multivitamins (Hexavitamin) 1 tab PO DAILY [facility] Last Admin: 06/12/18 09:52 Dose: 1 tab Ondansetron HCl (Zofran Tab) 4 mg PO Q8 PRN PRN Reason: Nausea/Vomiting Saccharomyces Boulardii (Florastor) 250 mg PO BID [facility] Last Admin: 06/12/18 09:52 Dose: 250 mg Sertraline HCl (Zoloft) 50 mg PO DAILY [facility] Last Admin: 06/12/18 09:52 Dose: 50 mg Thiamine HCl (Vitamin B1 Tab) 100 mg PO DAILY [facility] Last Admin: 06/12/18 09:53 Dose: 100 mg Trazodone HCl (Desyrel) 100 mg PO HS PRN PRN Reason: Insomnia - Labs Labs: 06/12/18 11:31 06/12/18 11:31
--- NOTE | 2018-06-12 15:58 | CP.PCM.PCO ---
Physician Communication Note - Physician Communication Note Physician Communication Note: Please see above.
[2018-06-12] MEDS: Aluminum Hydroxide/Magnesium Hydroxide Susp (30 mL) PO PRN (18:19)
[2018-06-13] MEDS: Multiple Vitamins Tab PO SCH (09:34)
[2018-06-13] MEDS: Saccharomyces Boulardi 250 mg Cap PO SCH ×2 (09:34→17:42)
[2018-06-13 11:50] LABS: BASO % 0.6 % (0.0-2.0); EOS # 0.1 K/uL (0.0-0.7); EOS % 1.1 % (0.0-4.0); HEMOGLOBIN 12.5 g/dL (12.0-18.0); LYMPH # 2.9 K/uL (1.0-4.3); LYMPH % 43.2 % (20.0-40.0); MEAN CELL VOLUME 88.8 fL (80.0-94.0); MEAN CORPUSCULAR HEMOGLOBIN 31.2 pg (27.0-31.0); MEAN CORPUSCULAR HGB CONC 35.2 g/dL (33.0-37.0); MEAN PLATELET VOLUME 7.2 fL (7.2-11.7); MONO # 0.5 K/uL (0.0-0.8); MONO % 6.8 % (0.0-10.0); NEUT # 3.2 K/uL (1.8-7.0); NEUT % 48.3 % (50.0-75.0); RBC 3.99 Mil/uL (4.40-5.90); RED CELL DISTRIBUTION WIDTH 13.5 % (11.5-14.5); WHITE BLOOD COUNT 6.7 K/uL (4.8-10.8)
[2018-06-13 12:06] LABS: ALB/GLOB RATIO 1.1 (1.0-2.1); ALBUMIN 3.7 g/dL (3.5-5.0); ALT/SGPT 27 U/L (21-72); AST/SGOT 20 U/L (17-59); BLOOD UREA NITROGEN 17 mg/dL (9-20); GFR AFRICAN-AMERICAN > 60; GFR NON-AFRICAN AMERICAN > 60
[2018-06-13] MEDS: Aluminum Hydroxide/Magnesium Hydroxide Susp (30 mL) PO PRN (17:25)
[2018-06-14 08:29] LABS: BASO % 0.6 % (0.0-2.0); EOS # 0.1 K/uL (0.0-0.7); LYMPH # 2.4 K/uL (1.0-4.3); LYMPH % 31.8 % (20.0-40.0); MEAN CELL VOLUME 87.8 fL (80.0-94.0); MEAN CORPUSCULAR HEMOGLOBIN 31.3 pg (27.0-31.0); MEAN CORPUSCULAR HGB CONC 35.6 g/dL (33.0-37.0); MEAN PLATELET VOLUME 7.2 fL (7.2-11.7); MONO # 0.3 K/uL (0.0-0.8); MONO % 4.5 % (0.0-10.0); NEUT # 4.6 K/uL (1.8-7.0); NEUT % 62.1 % (50.0-75.0); NRBC % 0.1 % (0.0-2.0); RBC 4.15 Mil/uL (4.40-5.90); RED CELL DISTRIBUTION WIDTH 13.2 % (11.5-14.5); WHITE BLOOD COUNT 7.4 K/uL (4.8-10.8)
[2018-06-14 08:42] LABS: ALB/GLOB RATIO 1.2 (1.0-2.1); ALBUMIN 4.1 g/dL (3.5-5.0); ALT/SGPT 27 U/L (21-72); AST/SGOT 25 U/L (17-59); BLOOD UREA NITROGEN 15 mg/dL (9-20); CALCIUM 9.1 mg/dl (8.6-10.4); GFR AFRICAN-AMERICAN > 60; GFR NON-AFRICAN AMERICAN > 60
[2018-06-14] MEDS: Saccharomyces Boulardi 250 mg Cap PO SCH ×2 (10:27→17:37)
[2018-06-14] MEDS: Multiple Vitamins Tab PO SCH (10:27)
[2018-06-14] MEDS: Aluminum Hydroxide/Magnesium Hydroxide Susp (30 mL) PO PRN ×2 (13:21→20:57)
--- NOTE | 2018-06-14 15:07 | PCM.PYCHPN ---
Psychiatric Progress Note - Psychiatric Progress Note Patient seen today, length of contact: 16 min Patient Chief Complaint: "I am feeling depressed" Problems Identified/Issues Discussed: Mr. Wright says that he is suffering a lot from the withdrawal symptoms and openly admits that he wants to check himself out of the hospital so that he can go back to using heroin so he won't feel this way. He said he is weak, with hot /cold flashes, dizzy, hard to see sometimes, emesis, diarrhea, and anxiety. He does not have hallucinations. He does not have suicidal or homicidal thoughts/ ideations. He said he wants to get clean, but the withdrawal symptoms are too much, and he feels the only way out is . His appetite is good, but sleep is not good. Medication Change: Yes Medical Record Reviewed: Yes Mental Status Examination - Cognitive Function Orientation: Person, Place, Situation, Time Memory: Intact Attention: WNL Concentration: Poor Association: WNL Fund of Knowledge: Poor - Mood Mood: Depressed, Anxious - Affect Affect: Constricted, Depressed - Speech Speech: Soft - Formal Thought Process Formal Thought Process: No Impairment (+) - Suicidal Ideation Suicidal Ideation: No - Homicidal Ideation Homicidal Ideation: No Goal/Treatment Plan - Goal/Treatment Plan Need for Continued Stay: Severe depression anxiety, Severe functional impairment Progress Toward Problem(s) and Goals/Treatment Plan: Major Depressive Disorder recurrent severe without psychotic features Opiate use disorder severe Opiate withdrawal Alcohol use disorder severe Alcohol withdrawal -CBT -Psychotherapy -Supportive therapy, group therapy, individual therapy -Atarax 25 mg PO Q6 prn -Neurontin 300 mg PO TID -Methadone taper -Zoloft 50 mg -Trazodone 100 mg -Supportive therapy and education -CBT for relapse prevention -Nicotine patch if needed -Monitor for withdrawal symptoms
[2018-06-15] MEDS: Multiple Vitamins Tab PO SCH (09:58)
[2018-06-15] MEDS: Aluminum Hydroxide/Magnesium Hydroxide Susp (30 mL) PO PRN (10:05)
[2018-06-15] MEDS: Saccharomyces Boulardi 250 mg Cap PO SCH (10:06)
[2018-06-15 10:35] VITALS: BP 124/79; PULSE 42; RESP 19; TEMP 97.8
--- NOTE | 2018-06-15 14:30 | PCM.PYCHDC ---
Mental Status Examination - Mental Status Examination Orientation: Person, Place, Situation, Time Memory: Intact Mood: Neutral Affect: Other (Appropriate) Speech: Appropriate Attention: WNL Concentration: WNL Association: WNL Fund of Knowledge: WNL Formal Thought Process: No Impairment Description of patient's judgement and insight: Fair Psychotic Thoughts and Behaviors: None Suicidal Ideation: No Current Homicidal Ideation?: No Discharge Summary - Discharge Note Reason for Hospitalization: Major depressive disorder Opiate use disorder Alcohol use disorder Laboratory Data: Review Consultations:: List each consultation separately and include: 1. Reason for request. 2. Findings. 3. Follow-up Consultations: Reviewed Summary of Hospital Course include:: 1. Description of specific treatment plan utilized for patients during their course of treatmen. 2. Summarize the time- course for resolution of acute symptoms and/or regressed behaviors. 3. Describe issues identified and worked on during hospitalization. 4. Describe medication utilized. 5. Describe medical problems identified and treated. 6. Reassessment of suicide risk Summary of Hospital Course: Patient is a 52 year old male with a history of chronic opiate and alcohol abuse that was admitted for suicidal ideation. The patient states that he came to the ER yesterday because he was having thoughts of killing himself. He states that he did not have a plan. The patient states that he has been homeless since 1995 and has no family. He states that he has had depression since he was a teenager. He has been hospitalized three times in a psych unit in [facility] [place]. The patient has attempted to commit suicide four times in the past. He states that he is only on medications when he has been in the hospital. Most recently he has been without medication for two years. He was on Zoloft, Neurontin, and Klonopin but is not currently taking his medications. The patient admits to heroin use 10-30 bags a day via IV and cocaine 10 capsules a day via IV. He also admits to occasional marijuana use but did not quantify the amount. He states that he drinks up to 20 24 ounce beer cans a day. He currently expresses depressed mood and feelings of hopelessness and helplessness. He is reporting withdrawal symptoms including muscle cramps., nausea, joint pains and muscle cramps. Past Medical History: Hepatitis C Past surgical history: hip and elbow surgery Social history: currently does no have a job, is homeless, smokes 1 pack of cigarettes a day During his stay in the hospital patient was treated for from his methadone taper for opiate withdrawal symptoms and also with Librium taper for alcohol withdrawal symptoms. Patient was also less started on other when necessary medications. During his stay in the hospital patient was also attending groups. With the above treatment patient started feeling better. Today patient was stable had no withdrawal symptoms and was ready for discharge. At the time of evaluation and discharge patient was stable, had no delusions, no auditory or visual hallucinations, no suicidal ideations or homicidal ideations. Neck patient was discharged in a stable condition. Patient will go to methadone maintenance treatment program for follow-up care after discharge from the hospital. - Final Diagnosis (DSM 5) Condition upon Discharge: GOOD Disposition: HOME/ ROUTINE Prescriptions/Medication Reconciliation: Gabapentin [Neurontin] 600 mg PO TID #90 tab Sertraline [Zoloft] 100 mg PO DAILY #30 tab Sertraline [Zoloft] 50 mg PO DAILY #30 tab traZODone [Desyrel] 100 mg PO HS PRN #30 tab PRN Reason: Insomnia - Smoking Cessation Smoking Cessation Medication prescribed: No - Antipsychotic Medications Pt discharged on 2 or more routine antipsychotic medications: No
== END 2018-06-15 11:30 | disposition home or self-care (01) | DRG 744 ==
LOC: C.ER 14:18 → C.5E 19:00
PROVIDERS: ADMIT Psychiatry & Neurology Psychiatry; ATTEND Psychiatry & Neurology Psychiatry
PROC: HZ2ZZZZ Detoxification Services for Substance Abuse Treatment (ICD-10-PCS; principal; 2018-06-08)
PROC: HZ52ZZZ Individual Psychotherapy for Substance Abuse Treatment, Cognitive-Behavioral (ICD-10-PCS; 2018-06-08)
PROC: HZ59ZZZ Individual Psychotherapy for Substance Abuse Treatment, Supportive (ICD-10-PCS; 2018-06-08)
PROC: HZ56ZZZ Individual Psychotherapy for Substance Abuse Treatment, Psychoeducation (ICD-10-PCS; 2018-06-08)
PROC: HZ42ZZZ Group Counseling for Substance Abuse Treatment, Cognitive-Behavioral (ICD-10-PCS; 2018-06-08)
PROC: HZ46ZZZ Group Counseling for Substance Abuse Treatment, Psychoeducation (ICD-10-PCS; 2018-06-08)
PROC: GZHZZZZ Group Psychotherapy (ICD-10-PCS; 2018-06-08)
PROC: GZ58ZZZ Individual Psychotherapy, Cognitive-Behavioral (ICD-10-PCS; 2018-06-08)
PROC: GZ56ZZZ Individual Psychotherapy, Supportive (ICD-10-PCS; 2018-06-08)
DX: F11.23 Opioid dependence with withdrawal (principal); F33.2 Major depressive disorder, recurrent severe without psychotic features; F10.230 Alcohol dependence with withdrawal, uncomplicated; Y90.1 Blood alcohol level of 20-39 mg/100 ml; F41.8 Other specified anxiety disorders; F43.10 Post-traumatic stress disorder, unspecified; R45.851 Suicidal ideations; Z59.0 Homelessness